=== PATIENT | male | born 1980 | race African-American/Black ===

== ENCOUNTER 2017-12-03 18:48 | Emergency (ER) | payer OTHER ==
[~2017-12-03] VITALS: Ht 170.2 cm; Wt 71.7 kg
[2017-12-03 20:03] VITALS: BP 121/75
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
[2017-12-03] MEDS ORDERED: IBUP-1060 PO (21:24)
[2017-12-03] MEDS ORDERED: CYCL5TAB PO (21:24)
== END 2017-12-03 21:57 | disposition home or self-care (01) ==
LOC: ER 18:48
DX: S16.1XXA Strain of muscle, fascia and tendon at neck level, initial encounter (principal); V43.92XA Unspecified car occupant injured in collision with other type car in traffic accident, initial encounter; Y93.89 Activity, other specified; Y92.488 Other paved roadways as the place of occurrence of the external cause; Y99.8 Other external cause status
CPT/HCPCS: 72125; 99284